=== PATIENT | male | born 1990 | race Caucasian/White ===

== ENCOUNTER 2017-06-03 19:13 | Emergency (ER) | payer OTHER ==
[~2017-06-03] VITALS: Ht 170.2 cm; Wt 104.5 kg
[2017-06-03 19:20] VITALS: Ht 170.2 cm; Wt 104.5 kg
--- NOTE | 2017-06-03 20:59 | ERD ---
ER Documentation Chief Complaint Date/Time DATE: 06/03/17 TIME: 20:49 Chief Complaint headache x 1 week, fever/nighsweats at night, cough with phlegm HPI 27-year-old male who presents emergency department for active cough, fever, frontal headache for about a week. Denies head injury, this is the worst headache of his life, throat pain, difficulty breathing, shoulder pain, chest pain, back pain, abdominal pain, nausea, vomiting, constipation, diarrhea, recent travel, recent exposure to any illness, recent antibiotic use in the last 3 months, numbness or tingling sensation. Drug allergies. No past medical history. No surgeries. 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 Smokes 2 sticks of cigarettes a day. Denies use of alcoholic beverages, use of illegal drugs. ROS All systems reviewed and are negative except as per history of present illness. Medications Home Meds Active Scripts Ibuprofen* (Motrin*) 800 Mg Tab, 800 MG PO Q8 Y for PAIN AND OR ELEVATED TEMP, # 30 TAB Prov:JEFFERY VILLA 06/03/17 Acetaminophen* (Tylophen*) 500 Mg Capsule, 1 CAP PO Q6H Y for PAIN AND OR ELEVATED TEMP, #20 CAP Prov:JEFFERY VILLA 06/03/17 Prednisone* (Prednisone*) 20 Mg Tab, 40 MG PO DAILY for 4 Days, TAB Prov:JEFFERY VILLA F 06/03/17 Albuterol Sulfate* (Proair HFA*) 8.5 Gm Hfa.aer.ad, 2 PUFF INH Q4, #1 INHALER Prov:JEFFERY VILLA 06/03/17 Azithromycin* (Zithromax*) 250 Mg Tablet, 250 MG PO .ZPACK DIRECTED, #6 TAB TAKE 500 MG (2 TABS) THE FIRST DAY THEN 250 MG (1 TAB) DAYS 2-5 Prov:JEFFERY VILLA 06/03/17 Allergies Allergies: Coded Allergies: No Known Allergy (Unverified , 06/03/17) PMhx/Soc Medical and Surgical Hx: pt denies Surgical Hx History of Surgery: No Anesthesia Reaction: No Hx Neurological Disorder: No Hx Respiratory Disorders: Yes (asthmatic) Hx Cardiac Disorders: No Hx Psychiatric Problems: No Hx Miscellaneous Medical Probl: No Hx Alcohol Use: Yes Hx Substance Use: No Hx Tobacco Use: Yes Smoking Status: Current every day smoker Physical Exam Vitals Vital Signs Date Time Temp Pulse Resp B/P Pulse Ox O2 Delivery O2 Flow Rate FiO2 06/03/17 19:20 98.8 101 20 141/86 99 Physical Exam Const: [] Head: Atraumatic Eyes: Normal Conjunctiva ENT: Normal External Ears, Nose and Mouth. Neck: Full range of motion..~ No meningismus. Resp: Clear to auscultation bilaterally Cardio: Regular rate and rhythm, no murmurs Abd: Soft, non tender, non distended. Normal bowel sounds Skin: No petechiae or rashes Back: No midline or flank tenderness Ext: No cyanosis, or edema Neur: Awake and alert Psych: Normal Mood and Affect Results 24 hrs Current Medications Medications (Trade) Dose Ordered Sig/[place] Route PRN Reason Start Time Stop Time Status Last Admin Dose Admin Ceftriaxone Sodium (Rocephin) 500 mg ONCE ONCE IM 06/03/17 21:00 06/03/17 21:01 DC 06/03/17 21:28 Ibuprofen (Motrin) 800 mg ONCE ONCE PO 06/03/17 21:30 06/03/17 21:31 DC 06/03/17 21:28 Procedures/MDM 27-year-old male who presents emergency department for active cough, fever, frontal headache for about a week. Physical exam: Respirations even and unlabored. Lung sounds are clear to auscultation. No neck stiffness. No meningeal irritation. Negative on Kernig sign. Negative and Brudzinski sign. No pain in eye movement. Extraocular movement of his eyes is within normal limits. Cranial nerves II through XII are intact. Disease process was explained to the patient. He verbalized understanding and agreed with the diagnostic test, treatment, plan of care. Chest X-ray: No acute disease. Treatment: Ceftriaxone IM. Reevaluation: Denies headache, dizziness, neck pain, neck stiffness, throat pain , difficulty swallowing, shoulder pain, chest pain, back pain, abdominal pain, nausea, vomiting. No episode of emesis in the emergency department. No abdominal tenderness. Respirations even and unlabored. Lung sounds are clear to auscultation. No neurological deficits. No neurovascular deficits. Prescription: Azithromycin. Pro-air. Prednisone. Tylenol. Follow-up with primary care physician the next 24-48 hours. To maintain the emergency department for any new symptoms or any worsening symptoms. All questions and concerns are answered. Patient verbalized understanding and agreed with the plan of care. Hemodynamically stable on discharge. Departure Diagnosis: Primary Impression: Headache Additional Impression: Acute bronchitis Condition: Stable Additional Instructions: Follow-up with primary care physician the next 24-48 hours. To maintain the emergency department for any new symptoms or any worsening symptoms. All questions and concerns are answered. Patient verbalized understanding and agreed with the plan of care. JEFFERY VILLA Jun 03, 2017 20:59
[2017-06-03] MEDS ORDERED: CEFTRIAXONE 500 MG INJ IM ONE (21:00)
[2017-06-03] MEDS ORDERED: ALBU8.5H3 INH (21:01)
[2017-06-03] MEDS ORDERED: AZIT250T94 PO (21:01)
[2017-06-03] MEDS ORDERED: IBUP800T25 PO (21:02)
[2017-06-03] MEDS ORDERED: ACET500C5 PO (21:02)
[2017-06-03] MEDS ORDERED: PRED20TA PO (21:02)
[2017-06-03] MEDS ORDERED: IBUPROFEN 800 MG TAB PO ONE (21:30)
--- NOTE | 2017-06-03 22:09 | RADRPT ---
PROCEDURE: XR Chest. CLINICAL INDICATION: Cough, fever TECHNIQUE: PA and lateral views of the chest were obtained COMPARISON: None FINDINGS: The heart and mediastinum are within normal limits. The lungs are clear. There is no pleural effusion or pneumothorax. The bones and soft tissues are unremarkable. RPTAT: AA IMPRESSION: No acute disease. .Alex Brown MD, MD Date Time Electronically viewed and signed by .Alex Brown MD, on 06/03/2017 22:08 .S/
== END 2017-06-03 22:31 | disposition home or self-care (01) ==
LOC: FTE 19:13
DX: R51 Headache (principal); J20.9 Acute bronchitis, unspecified; J45.909 Unspecified asthma, uncomplicated; F17.210 Nicotine dependence, cigarettes, uncomplicated
CPT/HCPCS: 71020; 96372; J0696; Z7502; Z7610

== ENCOUNTER → 2017-08-30 | Emergency (ER) | END | disposition home or self-care (01) ==

== ENCOUNTER 2018-05-20 20:49 | Emergency (ER) | END 2018-05-20 23:35 | disposition home or self-care (01) ==

== ENCOUNTER 2019-05-13 23:03 | Emergency (ER) | payer OTHER ==
[~2019-05-13] VITALS: Ht 177.8 cm; Wt 102.0 kg
[~2019-05-13 23:03] MED LIST: ACET500C5 PO; ALBU18HF INHALATION; ALBU8.5H8 INH; AZIT250T PO; IBUP-1542 PO; IBUP800T48 PO; IMIQ1CRE14 TOP; IPRA15SP NS; LORA-441 PO; MED4DP PO; PRED20TA PO
[2019-05-13 23:09] VITALS: Ht 177.8 cm; Wt 102.0 kg
[2019-05-14 02:24] VITALS: BP 141/81; PULSE 52; RESP 20
== END 2019-05-14 02:25 | disposition home or self-care (01) ==
LOC: FTE 23:03
DX: F41.9 Anxiety disorder, unspecified (principal); J45.909 Unspecified asthma, uncomplicated; F17.210 Nicotine dependence, cigarettes, uncomplicated; R42 Dizziness and giddiness
CPT/HCPCS: 82962; 93005; Z7502